=== PATIENT | female | born 1965 | race Caucasian/White ===

== ENCOUNTER 2017-05-29 07:07 | Emergency (ER) | payer BC ==
[2017-05-29] MEDS ORDERED: LORazepam 2 MG/ML INJ IVP ONE (07:15)
[2017-05-29] MEDS ORDERED: NS 1,000 ML IV ONE (07:16)
--- NOTE | 2017-05-29 07:17 | EDPHY ---
H & P Constitutional: Initial Vital Signs Temperature (C) 36.4 C 05/29/17 07:17 Heart Rate 52 L 05/29/17 07:17 Respiratory Rate 16 05/29/17 07:17 Blood Pressure 145/78 H 05/29/17 07:17 O2 Sat (%) 98 05/29/17 07:17 O2 Delivery Mode Room Air Allergies/Adverse Reactions: No Known Allergies Allergy (Unverified 05/29/17 07:16) Home Medications: Medication Instructions Recorded NK [No Known Home Meds] 05/29/17 Medical Decision Making ED Course/Re-evaluation: CHIEF COMPLAINT: Near-syncope HISTORY OF PRESENT ILLNESS: The patient is a 51 y/o female arriving via EMS following two brief near- syncopal episodes after taking a 5/325 mg [place] pill prescribed to her earlier this morning. She had a dental implant surgery yesterday and was experiencing pain not controlled by ibuprofen so a few hours ago she took a 5/ 325 mg [place]. About twenty minutes later, she felt near syncopal but it is unclear if she actually lost consciousness. After lying down for a while she attempted to stand and had another near syncopal event. She is not experiencing confusion. She denies recent injuries, preceding chest pain, dyspnea. EMS reports her BP on scene was 100/60. REVIEW OF SYSTEMS: A 10 point review of systems was performed and is negative with the exception of the elements mentioned in the history of present illness. PHYSICAL EXAM: HR, BP, O2 Sat, RR. Temp noted General Appearance: Alert, well hydrated, appropriate, and non-toxic appearing. Tremulous. Head: Atraumatic without scalp tenderness or obvious injury Eyes: Pupils equal, round, reactive to light and accommodation, EOMI, no trauma , no injection. Ears: Clear bilaterally, no perforation, normal landmarks Nose: Atraumatic, no rhinorrhea, clear. Mouth: Dental implant is intact with no discharge or signs of infection. Sutures are intact. Throat: There is no erythema or exudates, no lesions, normal tonsils, mucus membranes moist. Neck: Supple, nontender, no lymphadenopathy. Respiratory: No retractions, no distress, no wheezes, and no accessory muscle use. Lungs are clear to auscultation bilaterally. Cardiovascular: Regular rate and rhythm, no murmurs, rubs, or gallops. Good capillary refill all extremities. Gastrointestinal: Abdomen is soft, nontender, non-distended, no masses, no rebound, no guarding, no peritoneal signs. Musculoskeletal: Normal active ROM of all extremities, atraumatic. Neurological: Alert, appropriate, and interactive. Non-focal neuro exam. Skin: No rashes, good turgor, no nodules on palpation. Past medical history: Hypothyroidism Past surgical history: Denies Family history: Non-contributory Social history: , lives in [place], DIAGNOSTICS/PROCEDURES/CRITICAL CARE TIME: The 12 lead EKG was interpreted by myself. Sinus bradycardia rate 55. No ischemia. Normal intervals. See hard copy and/or "tracemaster" electronic copy for interpretation. DIFFERENTIAL DIAGNOSIS: The differential diagnosis for the patient's syncope included but was not limited to vasovagal syncope, arrhythmia, dehydration, cardiogenic causes, neurogenic causes, blood loss, and medication reaction. MEDICAL DECISION MAKING: The patient is a healthy 51 y/o female experiencing a mild headache following near-syncopal events after ingestion of a 5/325 mg [place] pill. On exam she is mildly tremulous but otherwise well-appearing. Her dental implant is clean with no discharge or signs of infection. I suspect she is having an adverse reaction to the medication but I will address other causes such as cardiac causes. Plan for IV, labs, EKG, and symptom management. 1 mg IV Ativan and 1 L fluids administered. 733- CHEM is within normal limits which rules out electrolyte, anemia or blood glucose causes. EKG shows sinus bradycardia with a rate of 55 and no ischemia with normal intervals. The heart rate is normal for the patient. 1013- I reassessed patient and discussed work-up. Her labs and EKG are normal. She is improved after Ativan and IV fluids. She feels ready to go home. She has been able to walk to the bathroom unassisted without recurrence of symptoms. We discussed follow-up instructions and return precautions. She agrees with plan for discharge. - Data Points Laboratory Results: 05/29/17 07:21 POC Hgb 14.6 gm/dL gm/dL (12.6-16.3) POC Hct 43 % % (38-47) POC Sodium 141 mEq/L mEq/L (134-144) POC Potassium 4.1 mEq/L mEq/L (3.3-5.0) POC Chloride 105 mEq/L mEq/L (97-110) POC BUN 16 mg/dL mg/dL (7-23) POC Creatinine 1.0 mg/dL mg/dL (0.6-1.0) POC Glucose 139 mg/dL H mg/dL (70-100) Medications Given: Discontinued Medications Sodium Chloride (Ns) 1,000 mls @ 0 mls/hr IV EDNOW ONE; Wide Open PRN Reason: Protocol Stop: 05/29/17 07:17 Last Admin: 05/29/17 07:24 Dose: 1,000 mls Lorazepam (Ativan Injection) 1 mg IVP EDNOW ONE Stop: 05/29/17 07:16 Last Admin: 05/29/17 07:24 Dose: 1 mg Point of Care Test Results: 05/29/17 07:21 POC Sodium 141 POC Potassium 4.1 POC Chloride 105 POC BUN 16 POC Creatinine 1.0 POC Glucose 139 H Departure - Departure Disposition: Home, Routine, Self-Care Clinical Impression: Near syncope Condition: Good Instructions: Near Syncope (ED) Additional Instructions: 1. Increase fluid intake and rest. 2. Continue using ibuprofen for pain and inflammation. 3. Follow-up with your doctor if you need assistance with management of your dental pain. 4. Return to the ED for recurrent fainting, chest pain, shortness of breath, or other worsening of condition. Referrals: Amanda Everett MD [Medical Doctor] - As per Instructions Report Scribed for: Chadd Ramires Report Scribed by: Mame Varela Date of Report: 05/29/17 Time of Report: 08:28
[2017-05-29 07:18] VITALS: RESP 16
--- NOTE | 2017-05-29 07:33 | CPEKG ---
Heart Rate: 54 RR Interval: 1111 P-R Interval: 129 QRSD Interval: 94 QT Interval: 476 QTC Interval: 452 P [place]: 13 QRS [place]: 68 T Wave [place]: 52 EKG Severity - NORMAL ECG - EKG Impression: SINUS RHYTHM Electronically Signed By: Chadd Ramires 29-May-2017 14:33:03
[2017-05-29 10:21] VITALS: BP 110/75; PULSE 60; TEMP 98.6; O2SAT 98
== END 2017-05-29 10:20 | disposition home or self-care (01) ==
DX: R55 Syncope and collapse (principal); E86.9 Volume depletion, unspecified
CPT/HCPCS: 82947-QW; 96374; J2060